=== PATIENT | male | born 1980 | race Two or more races ===

== ENCOUNTER 2016-11-16 14:04 | Emergency (ER) | payer SELFPAY ==
[~2016-11-16] VITALS: Ht 175.3 cm; Wt 77.5 kg
[2016-11-16 14:06] VITALS: BP 131/81
[2016-11-16] MEDS ORDERED: AZITHROMYCIN 500 MG TABLET PO ONE (14:30)
[2016-11-16] MEDS ORDERED: CEFTRIAXONE 250 MG IM ONE (14:30)
[2016-11-16] MEDS ORDERED: CEFTRIAXONE 250 MG ONE (15:10)
[2016-11-16] MEDS ORDERED: AZITHROMYCIN 500 MG TABLET ONE (15:10)
[2016-11-16] MEDS ORDERED: LIDOCAINE 1%, 20ML ONE (15:10)
[2016-11-16 15:14] LABS: PATH.CAST-FLAG NOT PRESENT; SPERM-FLAG NOT PRESENT; SRC-FLAG NOT PRESENT; XTAL-FLAG NOT PRESENT; YLC-FLAG NOT PRESENT
== END 2016-11-16 15:40 | disposition home or self-care (01) ==
LOC: ED 14:49
DX: A64 Unspecified sexually transmitted disease (principal)
CPT/HCPCS: 81001; 87086; 87491; 87591; 96372; 99284; J0696; 87077